=== PATIENT | male | born 1975 | race African-American/Black ===

== ENCOUNTER 2020-03-22 14:27 | Emergency (ER) | payer SELFPAY, OTHER ==
--- NOTE | 2020-03-22 15:47 | RAD REPORT ---
EXAM DESCRIPTION: CT - Stone Protocol - 03/22/2020 3:36 pm CLINICAL HISTORY: Flank pain. abd pain COMPARISON: No comparisons TECHNIQUE: Axial images were obtained without oral or IV contrast. Lack of contrast limits solid org an and vascular assessment. The [id number] spans the entirety of the system partially obscuring uppermost abdomen and lung bases. Coronal reformatted images were obtained and reviewed. All CT scans are performed using dose optimization technique as appropriate and may include automated exposure control or mA/KV adjustment according to patient size. FINDINGS: Mild ground-glass opacities are seen in both lung bases. Imaged portions of the liver and spleen show no suspicious findings on non-contrast imaging. The panc reas and adrenal glands are normal. No pathologic lymphadenopathy in the abdomen or pelvis. No urinary tract stones or obstructive uropathy. No bowel obstruction, free air, free fluid or abscess. The appendix is not identified as a discrete s tructure, however, no secondary findings of appendicitis are identified. Mild lower lumbar degenerative changes. IMPRESSION: No urinary tract stones or obstructive uropathy. Mild ground-glass opacities in the lung bases could indicate COVID pneumonia.
[2020-03-22] MEDS ORDERED: AZITHROMYCIN 250 MG TAB ONE (16:25)
--- NOTE | 2020-03-22 16:28 | ER ---
Nurse's Notes [facility] Name: Gee Arambula Age: 44 yrs Sex: Male : 1975 Arrival Date: 03/22/2020 Time: 14:31 Bed 13 Private MD: Diagnosis: Pneumonia, unspecified organism Presentation: 03/22 14:41 Chief complaint: Patient states: Last Thursday, we were tested for Covid-19. My and ca1 daughter's result are back yesterday and it was POSITIVE. I still don't have my result yet. This morning, I had sharp RLQ pain, N/V. Reports cough. Denies fever. Denies SOB. Coronavirus screen: Surgical mask placed on patient. Patient moved to private room, placed in contact and droplet isolation with eye protection until further assessment. Patient reports a cough. Patient denies shortness of breath or difficulty breathing. Patient denies measured and/or subjective temperature greater than 100.4F prior to today's visit. Patient denies travel on a cruise ship or to a country the [facility] currently lists as an affected area. Patient reports contact with known and/or suspected case of COVID-19. Surgical mask in place. Instructed on keeping mask at all times and keep 6 feet distance from other people in the lobby. Verbalized understanding. Ebola Screen: Patient negative for fever greater than or equal to 101.5 degrees Fahrenheit, and additional compatible Ebola Virus Disease symptoms Patient denies exposure to infectious person. Patient denies travel to an Ebola-affected area in the 21 days before illness onset. No symptoms or risks identified at this time. Initial Sepsis Screen: Does the patient meet any 2 criteria? No. Patient's initial sepsis screen is negative. Does the patient have a suspected source of infection? No. Patient's initial sepsis screen is negative. Risk Assessment: Do you want to hurt yourself or someone else? Patient reports no desire to harm self or others. Onset of symptoms was March 22, 2020. 14:41 Method Of Arrival: Wheelchair ca1 14:41 Method Of Arrival: Wheelchair ca1 14:41 Acuity: DWIGHT 3 ca1 Historical: - Allergies: 14:45 No Known Allergies; ca1 - Home Meds: 14:45 None [Active]; ca1 - PMHx: 14:45 None; ca1 - PSHx: 14:45 None; ca1 - Immunization history:: Adult Immunizations not up to date. - Social history:: Smoking status: Patient denies any tobacco usage or history of. Screenin:40 Abuse screen: Denies threats or abuse. Nutritional screening: No deficits noted. em Tuberculosis screening: No symptoms or risk factors identified. Fall Risk None identified. Assessment: 15:30 General: Appears in no apparent distress. comfortable, Behavior is calm, cooperative, em appropriate for age. Pain: Complains of pain in abdomen. Neuro: Level of Consciousness is awake, alert, obeys commands, Oriented to person, place, time, situation, Appropriate for age. Cardiovascular: Capillary refill < 3 seconds Patient's skin is warm and dry. Respiratory: Airway is patent Respiratory effort is even, unlabored, Respiratory pattern is regular, symmetrical. GI: Abdomen is round non-distended, Reports lower abdominal pain, upper abdominal pain, Patient currently denies nausea. Derm: Skin is intact, is healthy with good turgor, Skin is pink, warm \T\ dry. Musculoskeletal: Capillary refill < 3 seconds, Range of motion: intact in all extremities. Vital Signs: 14:41 BP 147 / 98; Pulse 110; Resp 18 S; Temp 99.8(O); Pulse Ox 96% on R/A; Weight 158.76 kg ca1 (R); Height 5 ft. 6 in. (167.64 cm) (R); Pain 7/10; 14:41 Body Mass Index 56.49 (158.76 kg, 167.64 cm) ca1 ED Course: 14:31 Patient arrived in ED. mr 14:45 Triage completed. ca1 14:45 Arm band placed on right wrist. ca1 14:52 Heriberto Bray, OLIVIA is Primary Nurse. em 14:56 Aurora Durán FNP-C is PHCP. kb 14:56 Uriah Erwin MD is Attending Physician. kb 15:40 Patient has correct armband on for positive identification. Bed in low position. Call em light in reach. 16:42 Patient did not have IV access during this emergency room visit. em 16:42 No provider procedures requiring assistance completed. em Administered Medications: 16:41 Drug: Zithromax 500 mg Route: PO; em 16:42 Follow up: Response: No adverse reaction em Outcome: 16:27 Discharge ordered by . kb 16:42 Discharged to home ambulatory. em 16:42 Condition: good 16:42 Discharge instructions given to patient, Instructed on discharge instructions, follow up and referral plans. medication usage, Demonstrated understanding of instructions, follow-up care, medications, Prescriptions given X 3. 16:52 Patient left the ED. em Signatures: Aurora Durán, KARINA-Leandro COLLINS-Francisco Lissy MckenzieHeriberto RN RN em Acob, OLIVIA Rodriguez RN ca1 Corrections: (The following items were deleted from the chart) 14:47 14:41 Coronavirus screen: Patient reports a cough. Patient denies shortness of breath ca1 or difficulty breathing. Patient denies measured and/or subjective temperature greater than 100.4F prior to today's visit. Patient denies travel on a cruise ship or to a country the [facility] currently lists as an affected area. Patient reports contact with known and/or suspected case of COVID-19. Surgical mask in place. Instructed on keeping mask at all times and keep 6 feet distance from other people in the lobby. Verbalized understanding ca1
--- NOTE | 2020-03-22 16:28 | EDPHYS ---
Physician Documentation [facility] Name: Gee Arambula Age: 44 yrs Sex: Male : 1975 Arrival Date: 03/22/2020 Time: 14:31 Bed 13 Private MD: ED Physician Uriah Erwin HPI: 03/22 16:25 This 44 yrs old Black Male presents to ER via Wheelchair with complaints of R/O COVID, kb Cough, Vomiting, Abdominal Pain. 16:25 The patient or guardian reports cough, that is intermittent, described as moderate. kb Onset: The symptoms/episode began/occurred 4 week(s) ago. Severity of symptoms: At their worst the symptoms were moderate, in the emergency department the symptoms are unchanged. Modifying factors: The symptoms are alleviated by nothing, the symptoms are aggravated by nothing. Associated signs and symptoms: Pertinent positives: vomiting, Pertinent negatives: chest pain, diarrhea, ear ache, fever, nausea, rhinorrhea, sore throat. The patient has not experienced similar symptoms in the past. The patient has not recently seen a physician. Pt reports cough for a few days that has gotten worse. States this morning the cough made him vomit and caused abd pain. States pain is gone at this time, but returns with cough. Tested for COVID at [facility] and awaiting result. and child are both positive. Historical: - Allergies: 14:45 No Known Allergies; ca1 - Home Meds: 14:45 None [Active]; ca1 - PMHx: 14:45 None; ca1 - PSHx: 14:45 None; ca1 - Immunization history:: Adult Immunizations not up to date. - Social history:: Smoking status: Patient denies any tobacco usage or history of. ROS: 16:22 Constitutional: Negative for fever, chills, and weight loss, Neck: Negative for injury, kb pain, and swelling, Cardiovascular: Negative for chest pain, palpitations, and edema, Back: Negative for injury and pain, MS/Extremity: Negative for injury and deformity, Skin: Negative for injury, rash, and discoloration, Neuro: Negative for headache, weakness, numbness, tingling, and seizure. 16:22 Respiratory: Positive for cough, Negative for dyspnea on exertion, hemoptysis, orthopnea, pleurisy, shortness of breath, sputum production, wheezing. 16:22 Abdomen/GI: Positive for abdominal pain, vomiting, Negative for diarrhea, constipation, abdominal cramps, abdominal distension, anorexia. Exam: 16:22 Constitutional: This is a well developed, well nourished patient who is awake, alert, kb and in no acute distress. Head/Face: Normocephalic, atraumatic. Chest/axilla: Normal chest wall appearance and motion. Nontender with no deformity. No lesions are appreciated. Cardiovascular: Regular rate and rhythm with a normal S1 and S2. No gallops, murmurs, or rubs. Normal PMI, no JVD. No pulse deficits. Respiratory: Lungs have equal breath sounds bilaterally, clear to auscultation and percussion. No rales, rhonchi or wheezes noted. No increased work of breathing, no retractions or nasal flaring. Abdomen/GI: Soft, non-tender, with normal bowel sounds. No distension or tympany. No guarding or rebound. No evidence of tenderness throughout. Skin: Warm, dry with normal turgor. Normal color with no rashes, no lesions, and no evidence of cellulitis. MS/ Extremity: Pulses equal, no cyanosis. Neurovascular intact. Full, normal range of motion. Neuro: Awake and alert, GCS 15, oriented to person, place, time, and situation. Cranial nerves II-XII grossly intact. Motor strength 5/5 in all extremities. Sensory grossly intact. Cerebellar exam normal. Normal gait. Vital Signs: 14:41 BP 147 / 98; Pulse 110; Resp 18 S; Temp 99.8(O); Pulse Ox 96% on R/A; Weight 158.76 kg ca1 (R); Height 5 ft. 6 in. (167.64 cm) (R); Pain 7/10; 14:41 Body Mass Index 56.49 (158.76 kg, 167.64 cm) ca1 MDM: 14:56 Patient medically screened. kb 16:24 Data reviewed: vital signs, nurses notes. Data interpreted: Pulse oximetry: on room air kb is 96 %. Interpretation: normal. Counseling: I had a detailed discussion with the patient and/or guardian regarding: the historical points, exam findings, and any diagnostic results supporting the discharge/admit diagnosis, radiology results, the need for outpatient follow up, a family practitioner, to return to the emergency department if symptoms worsen or persist or if there are any questions or concerns that arise at home. 03/22 15:03 Order name: CT Stone Protocol kb 03/22 15:03 Order name: Chest Single View XRAY kb 03/22 15:51 Order name: CT; Complete Time: 16:00 EDMS 03/22 16:41 Order name: RAD; Complete Time: 16:42 EDMS Administered Medications: 16:41 Drug: Zithromax 500 mg Route: PO; em 16:42 Follow up: Response: No adverse reaction em Disposition: 03/23 16:03 Co-signature as Attending Physician, Uriah Erwin MD I agree with the assessment and kdr plan of care. Disposition: 03/22/20 16:27 Discharged to Home. Impression: Pneumonia, unspecified organism. - Condition is Stable. - Discharge Instructions: Community-Acquired Pneumonia, Adult, [id number], COVID-19. - Prescriptions for Zithromax 500 mg Oral Tablet - take 1 tablet by ORAL route once daily for 5 days; 5 tablet. Prednisone 20 mg Oral Tablet - take 1 tablet by ORAL route once daily for 5 days; 5 tablet. Albuterol Sulfate 90 mcg/actuation - inhale 1-2 puff by INHALATION route every 4-6 hours; 1 Inhaler. - Medication Reconciliation Form, Thank You Letter, Antibiotic Education, Prescription Opioid Use form. - Follow up: Emergency Department; When: As needed; Reason: Worsening of condition. Follow up: Private Physician; When: 2 - 3 days; Reason: Recheck today's complaints, Continuance of care, Re-evaluation by your physician. Signatures: Dispatcher [employer] [facility] Aurora Durán, KARINA-C KARINA-Uriah Starr MD MD [facility] Heriberto Bray RN RN em Jennifer Verdugo RN RN ca1 Corrections: (The following items were deleted from the chart) 03/22 16:52 16:27 03/22/2020 16:27 Discharged to Home. Impression: Pneumonia, unspecified organism. em Condition is Stable. Forms are Medication Reconciliation Form, Thank You Letter, Antibiotic Education, Prescription Opioid Use. Follow up: Emergency Department; When: As needed; Reason: Worsening of condition. Follow up: Private Physician; When: 2 - 3 days; Reason: Recheck today's complaints, Continuance of care, Re-evaluation by your physician. kb
--- NOTE | 2020-03-22 16:38 | RAD REPORT ---
EXAM DESCRIPTION: RAD - Chest Single View - 03/22/2020 4:30 pm CLINICAL HISTORY: abd pain Chest pain. COMPARISON: No comparisons FINDINGS: Portable technique limits examination quality. The lungs are grossly clear. The heart is normal in size. No displaced fractures. IMPRESSION: No acute intrathoracic process suspected.
[2020-03-22 16:56] VITALS: BP 147/98; TEMP 99.8; O2SAT 96
== END 2020-03-22 16:52 | disposition home or self-care (01) ==
LOC: ER 14:27
DX: J18.9 Pneumonia, unspecified organism (principal)
CPT/HCPCS: 71045; 74176; 76377; 99283